=== PATIENT | male | born 1995 | race Caucasian/White ===

== ENCOUNTER 2022-07-30 07:27 | Emergency (ER) | payer MEDICAID ==
[~2022-07-30] VITALS: Ht 180.3 cm; Wt 65.0 kg
[2022-07-30 07:59] VITALS: BP 131/87
== END 2022-07-30 10:20 | disposition left against medical advice (07) ==
LOC: ER 07:27
DX: M79.645 Pain in left finger(s) (principal); M79.644 Pain in right finger(s); Z53.21 Procedure and treatment not carried out due to patient leaving prior to being seen by health care provider